=== PATIENT | female | born 1960 | race Caucasian/White ===

== ENCOUNTER 2016-11-10 12:34 | Day surgery (SDC) | payer BC, OTHER ==
[~2016-11-10] VITALS: Ht 152.4 cm; Wt 70.4 kg
[2016-11-10] MEDS ORDERED: GEMF600T60 PO (13:52)
[2016-11-10] MEDS ORDERED: TRAZ50TA18 PO (13:52)
[2016-11-10] MEDS ORDERED: AMIT25TA9 PO (13:52)
[2016-11-10] MEDS ORDERED: CITA20SO PO (13:52)
[2016-11-10 13:54] VITALS: Ht 152.4 cm; Wt 70.4 kg
[2016-11-10 14:18] VITALS: BP 118/72; PULSE 72; RESP 25
[2016-11-10] MEDS ORDERED: PROPOFOL 40 ML ONE (15:49)
[2016-11-10 16:44] VITALS: BP 114/61; RESP 20
--- NOTE | 2016-11-10 22:14 | GILP ---
DATE OF PROCEDURE: NAME OF PROCEDURE: Colonoscopy with snare polypectomy. SURGEON: Katt Aldridge MD HISTORY AND INDICATIONS: The patient here for colorectal cancer screening and constipation. PREMEDICATION: Monitored anesthesia care by anesthesiologist. INSTRUMENT USED: Olympus colonoscope. PREPARATION: Adequate. TECHNIQUE: After informed consent, with the patient/relatives understanding the procedure, its octavio cations potential risks and complications, including but not limited to allergic reaction, bleeding, perforation, infection, missed lesions, and after all pertinent questions were answered to the holli ent's satisfaction, the patient/relatives signed the witnessed informed consent. Following this, premedication was administered slowly IV push by under careful cardiovascular and re spiratory monitoring with pulse oximetry, automatic blood pressure and radiation monitor. Once the sedativ e effect was achieved, the patient was placed in the left lateral decubitus position, digital rectal examination was performed. The colonoscope was then introduced and advanced under visual control th roughout all segments of the colon including: the rectum, sigmoid, descending colon, splenic flexure , transverse colon, hepatic flexure, ascending colon and finally reaching the cecum which was clearl y identified by transillumination, finger indentation and the ileocecal valve. Careful examination o f the mucosa of the lower gastrointestinal tract both on insertion as well as withdrawal of the inst rument disclosed the following findings: Rectal Examination: No evidence of perirectal disease, no masses. Colonic Mucosa: The colonic mucosa is remarkable for diverticulosis of left side of the colon which is mild to moderate. A 6 mm polyp was noted in the proximal ascending colon, was snared and retrieved without difficulty. The ileocecal valve was clearly identified and appears unremarkable. The instrument was withdrawn , re-examining the mucosa in detail. No additional abnormalities are noted with exception of modera te-sized internal hemorrhoids. The instrument was then withdrawn. The patient tolerated the procedure well and was transferred out of the endoscopy suite awake and in good condition to continue recovery under observation. IMPRESSION: 1. A 6 mm polyp, proximal ascending colon, snared and retrieved. 2. Diverticulosis, left side of the colon. 3. Moderate-sized internal hemorrhoids. PLAN: The patient will be followed up as an outpatient. Annual Hemoccult stool testing is recommen ded. Pathology will be reviewed as soon as available. Surveillance colonoscopy in 5 years is recom mended. Dictated By: KATT ALDRIDGE MS/NTS Conf#: [id number] DID#: [id number]
== END 2016-11-10 19:51 | disposition home or self-care (01) ==
LOC: GIL 12:34
PROVIDERS: ATTEND Internal Medicine Gastroenterology
DX: Z12.11 Encounter for screening for malignant neoplasm of colon (principal); D12.2 Benign neoplasm of ascending colon; K57.90 Diverticulosis of intestine, part unspecified, without perforation or abscess without bleeding; K64.8 Other hemorrhoids; E78.5 Hyperlipidemia, unspecified; E66.9 Obesity, unspecified; Z68.30 Body mass index [BMI] 30.0-30.9, adult
CPT/HCPCS: 45385; 88305; Z7610